=== PATIENT | female | born 1955 | race Caucasian/White ===

== ENCOUNTER → 2022-02-04 | Day surgery (SDC) | payer OTHER ==
[~2022-02-04] VITALS: Ht 160 cm; Wt 73.5 kg
[~2022-02-04] MED LIST: CINNAMON500 MG PO; CYMBALTA60 MG PO; FIBER TABS625 MG PO; METFORMIN HCL500 MG PO; PRAVASTATIN SOD40 MG PO; STOOL SOFTENER100 MG PO; SYNTHROID88 MCG PO; TYLENOL PM EX-1 EACH PO; VICODIN 10/3251 EACH PO; VITAMIN B COMP1 EACH PO; VITAMIN C1000 MG PO; XANAX0.5 MG PO
[2022-02-04 08:07] LABS: HCT 48.3 % (37.0-47.0); HGB 15.4 g/dl (12.5-16.0); MCH 29.1 pg (25.0-31.0); MCHC 31.9 g/dL (32.0-36.0); MCV 91.1 fL (78.0-100.0); MPV 10.3 fL (6.0-9.5); RBC 5.3 M/uL (4.20-5.40); RDW 13.5 % (11.5-14.0); WBC 9.7 K/uL (4.0-10.5)
[2022-02-04 08:34] LABS: ALBUMIN 3.8 g/dL (3.4-5.0); BILIRUBIN - TOTAL 0.6 mg/dL (0.2-1.0); BUN/CREAT RATIO (CALC) 11.6 RATIO; CREATININE 0.95 mg/dL (0.51-0.95); GLOBULIN (CALCULATION) 4.2 g/dL; POTASSIUM 3.5 mmol/L (3.5-5.1)
== END | disposition home or self-care (01) ==
LOC: FAS 07:25
PROVIDERS: Surgery
DX: D50.0 Iron deficiency anemia secondary to blood loss (chronic) (principal); K58.1 Irritable bowel syndrome with constipation; R63.4 Abnormal weight loss
CPT/HCPCS: 36415; 80053; J1610; J2704; J7120